=== PATIENT | male | born 1985 | race Caucasian/White ===

== ENCOUNTER 2020-08-10 16:48 | Emergency (ER) | payer OTHER, SELFPAY ==
--- NOTE | ~2020-08-10 | XR_ITS ---
XR ankle LT min 3V 08/10/2020 17:24 INDICATION: Left ankle pain PROCEDURE: 4 views left ankle COMPARISON: No prior studies for comparison. FINDINGS: Fracture, dislocation or subluxation is not identified. There is prominent soft tissue swel ling dorsal to the midfoot. There is a small osteophyte originating from the superior margin of the t alus. No foreign bodies are identified. IMPRESSION: 1: NO ACUTE BONE OR JOINT ABNORMALITY IDENTIFIED. Reviewed, dictated and finalized at location A.
[2020-08-10 17:08] VITALS: BP 151/84; PULSE 111; RESP 16; TEMP 37.4; O2SAT 100
--- NOTE | 2020-08-10 17:53 | ED.LOWEXIN ---
HPI - Extremity Injury (Lower) General Chief Complaint: Extremity Injury, Lower Stated Complaint: Extremity Injry, Lower Source: patient and RN notes reviewed Mode of arrival: ambulatory Limitations: no limitations History of Present Illness HPI Narrative: 35-year-old male who presents to [facility] care with complaints of injury to his left ankle which occurred today between 1130 and 1230. Patient states that he was carrying a box of tile at work and when he stepped off the step and rolled his ankle and fell. Patient states that his pain is throbbing and sharp and rates his pain 9/10 and is increased with weight bearing and movement of left ankle. Patient denies any tingling or numbness of left lower extremity, nail beds darrell briskly with strong pedal pulse to left foot. MD complaint: ankle injury and fall Injury: Left: ankle Related Data Allergies Allergy/AdvReac Type Severity Reaction Status Date / Time No Known Allergies Allergy Verified 08/10/20 17:17 Review of Systems Review of Systems: Narrative: CONSTITUTIONAL: Denies fever, chills, or sweats. EYES: Denies visual changes, redness, or discharge. ENT: Denies rhinorrhea, congestion, sore throat, or otalgia. CARDIOVASCULAR: Denies chest pain, palpitations, or edema. RESPIRATORY: Denies cough or dyspnea. GASTROINTESTINAL: Denies abdominal pain, nausea, vomiting, or diarrhea. GENITOURINARY: Denies dysuria or hematuria. SKIN: Denies rash or itching. MUSCULOSKELETAL: Denies back pain,positive for left ankle joint pain, or myalgia. NEUROLOGIC: Denies headache, numbness, or weakness. PSYCHIATRIC: Denies anxiety or depression. All systems reviewed & are unremarkable except as noted in HPI and below [facility] Past Medical History Medical History (Updated 08/13/20 @ 14:53 by Tess Black NP) No significant past medical history Surgical History Surgical History (Updated 08/13/20 @ 14:53 by Tess Black NP) No history of previous surgery Social History Social History (Updated 08/13/20 @ 14:57 by Tess Black NP) Smoking status: Never smoker Alcohol intake: unknown Substance use: unknown Living arrangements: with family Gender identity (if verbalized by the patient): Male Comments At time of signature, agree with nursing past medical, surgical, social history. There is no relevant family history pertinent to the presenting complaint Exam Narrative: Exam Narrative: GENERAL: Well-appearing, well-nourished, and in no acute distress. HEAD: Normocephalic, atraumatic. EYES: PERRLA and EOMI. ENT: Nares clear, no rhinorrhea or epistaxis. Mucous membranes moist. NECK: Supple.no lymphadenopathy CHEST: Clear to auscultation. No respiratory distress.SAO2 100% on room air HEART: Regular rate and rhythm. No murmur heard. Normal peripheral pulses. ABDOMEN: Soft, nontender, nondistended, normal active bowel sounds. EXTREMITIES: Normal range of motion.some edema to dorsal midfoot area of left foot. with stated pain to his medial and lateral left ankle with some soft tissue swelling to medial aspect. Patient has pain increase with ambulation states that his pain is sharp and rates it a 9/10. SKIN: Warm, dry, no rash. NEURO: No focal deficits. Alert and oriented x3. Course Vital Signs Vital signs: Vital Signs Temperature 37.4 C 08/10/20 17:08 Pulse Rate 111 H 08/10/20 17:08 Respiratory Rate 16 08/10/20 17:08 Blood Pressure 151/84 H 08/10/20 17:08 Pulse Oximetry 100 08/10/20 17:08 Temperature 37.4 C 08/10/20 17:08 Pulse Rate 111 H 08/10/20 17:08 Respiratory Rate 16 08/10/20 17:08 Blood Pressure 151/84 H 08/10/20 17:08 Pulse Oximetry 100 08/10/20 17:08 MDM - Extremity Injury (Lower) Differential Diagnosis Differential diagnosis: Likely ankle sprain and strain, ankle fracture and other (Pain left ankle, swelling to dorsal midfoot ) Medical Records Attestation: I reviewed the patient's medical records. Imaging Data My im
--- NOTE | 2020-08-10 18:38 | PC.NURSE ---
PT TAKEN TO RADIOLOGY IN WHEELCHAIR
== END 2020-08-10 18:10 | disposition home or self-care (01) ==
PROVIDERS: Emergency Provider Registered Nurse
DX: S93.412A Sprain of calcaneofibular ligament of left ankle, initial encounter (principal); S96.912A Strain of unspecified muscle and tendon at ankle and foot level, left foot, initial encounter; X50.9XXA Other and unspecified overexertion or strenuous movements or postures, initial encounter
CPT/HCPCS: 73610; 99213; G0463